=== PATIENT | female | born 1950 | race Caucasian/White ===

== ENCOUNTER 2021-05-17 10:58 | Outpatient (CLI) | payer BC, SELFPAY ==
[2021-05-17 11:49] LABS: Hemoglobin A1C 6.1 % (<5.7)
[2021-05-17 12:08] LABS: Anion Gap 9 mmol/L (8-16); Blood Urea Nitrogen 20 mg/dL (7-17); Calcium 10.3 mg/dL (8.4-10.2); Carbon Dioxide 27 mmol/L (22-30); Chloride 105 mmol/L (98-107); Cholesterol 162 mg/dL (0-200); Estimated Glomerular Filt Rate > 60; Glucose 141 mg/dL (65-110); HDL Direct 42 mg/dL; Potassium 4.5 mmol/L (3.4-5.0); Sodium 141 mmol/L (137-145); Triglycerides 170 mg/dL (<150)
[2021-05-17 12:19] LABS: LDL Cholesterol Direct 83 mg/dL
== END 2021-05-17 10:59 | disposition home or self-care (01) ==
LOC: ANHLAB 11:00
PROVIDERS: PCP Internal Medicine; Visit Provider Internal Medicine
DX: E11.9 Type 2 diabetes mellitus without complications (principal)
CPT/HCPCS: 36415; 80048; 80061; 83036

== ENCOUNTER 2021-11-18 12:02 | Outpatient (CLI) | payer BC, SELFPAY ==
[2021-11-18 12:26] LABS: Basophils Percent Auto 0.3 % (0.2-1.2); Eosinophils Absolute Auto 0.2 K/mm3 (0-0.3); Eosinophils Percent Auto 3.9 % (0-4.4); Hematocrit 42.5 % (37.0-47.0); Hemoglobin 14.7 g/dL (12.0-15.0); Immature Granulocyte Absolute 0.02 K/mm3 (0.00-0.031); Immature Granulocyte Percent A 0.3 % (0-0.5); Lymphocytes Absolute Auto 1.47 K/mm3 (0.9-3.2); Lymphocytes Percent Auto 25.2 % (18.3-44.2); Mean Corpuscular HGB Conc 34.6 g/dl (32-36); Mean Corpuscular Volume 92.6 fl (80-100); Mean Platelet Volume 9.8 fl (7.4-10.4); Monocytes Absolute Auto 0.6 K/mm3 (0.1-0.6); Monocytes Percent Auto 10.3 % (2.6-8.5); Neutrophils Absolute Auto 3.5 K/mm3 (1.3-6.7); Platelet Count Result 213 k/mm3 (150-375); Red Blood Count 4.59 M/mm3 (4.2-5.4); Red Cell Distribution Width 13.2 % (11.5-14.5); White Blood Count 5.8 K/mm3 (4.5-10.0)
[2021-11-18 12:35] LABS: Hemoglobin A1C 5.9 % (<5.7)
[2021-11-18 12:36] LABS: Alanine Aminotransferase 35 U/L (4-35); Albumin Level 4.6 g/dL (3.5-5.1); Alkaline Phosphatase 85 U/L (38-126); Anion Gap 8 mmol/L (8-16); Aspartate Amino Transferase 31 U/L (14-36); Blood Urea Nitrogen 15 mg/dL (7-17); Calcium 10.1 mg/dL (8.4-10.2); Carbon Dioxide 27 mmol/L (22-30); Chloride 104 mmol/L (98-107); Cholesterol 181 mg/dL (0-200); Estimated Glomerular Filt Rate > 60; Glucose 113 mg/dL (65-110); HDL Direct 40 mg/dL; Potassium 4.2 mmol/L (3.4-5.0); Sodium 139 mmol/L (137-145); Triglycerides 247 mg/dL (<150)
[2021-11-18 12:48] LABS: LDL Cholesterol Direct 84 mg/dL
[2021-11-18 12:59] LABS: Vitamin D 25 Hydroxy 39.8 ng/mL
== END 2021-11-18 12:03 | disposition home or self-care (01) ==
LOC: ANHLAB 12:04
PROVIDERS: PCP Internal Medicine; Visit Provider Internal Medicine
DX: R73.03 Prediabetes (principal); I10 Essential (primary) hypertension; Z85.3 Personal history of malignant neoplasm of breast; E78.5 Hyperlipidemia, unspecified; R79.89 Other specified abnormal findings of blood chemistry; E66.9 Obesity, unspecified
CPT/HCPCS: 36415; 80053; 80061; 82306; 83036; 85025

== ENCOUNTER 2022-05-19 10:58 | Outpatient (CLI) | payer BC, SELFPAY ==
[2022-05-19 20:15] LABS: Anion Gap 11 mmol/L (8-16); Blood Urea Nitrogen 17 mg/dL (7-17); Calcium 10.2 mg/dL (8.4-10.2); Carbon Dioxide 24 mmol/L (22-30); Chloride 104 mmol/L (98-107); Estimated Glomerular Filt Rate > 60; Glucose 128 mg/dL (65-110); Potassium 4.2 mmol/L (3.4-5.0); Sodium 139 mmol/L (137-145)
[2022-05-19 22:01] LABS: Hemoglobin A1C 6.3 % (<5.7)
== END 2022-05-19 10:59 | disposition home or self-care (01) ==
LOC: ANHGOSHLAB 11:00
PROVIDERS: PCP Internal Medicine; Visit Provider Internal Medicine
DX: R73.03 Prediabetes (principal); I10 Essential (primary) hypertension
CPT/HCPCS: 36415; 80048; 83036

== ENCOUNTER 2022-11-17 07:00 | Outpatient (NON) | payer MEDICARE, SELFPAY ==
[2022-11-18 08:13] LABS: Appearance Urine Cloudy (Clear); Bacteria Urine 4+ /hpf; Bilirubin Urine Negative (Negative); Blood Urine Negative (Negative); Color Urine Yellow (Yellow); Glucose Urine UA Negative (Negative); Ketones Urine Negative (Negative); Leukocyte Esterase Ur Trace LEU/UL (Negative); Nitrate Urine Positive (Negative); Non Pathogenic Casts 0-2; Protein Urine Negative (Negative); RBC Urine 0-2 /hpf (0-2); Specific Grav Ur 1.013 (1.001-1.035); Squamous Epithelial Cell Urine Occasional /hpf (Few); Urobilinogen Urine 0.2 mg/dL (<2.0)
[2022-11-18 08:19] LABS: Add Urine Microscopic? YES
== END 2022-11-17 07:01 | disposition home or self-care (01) ==
PROVIDERS: PCP Internal Medicine; Visit Provider Clinical Nurse Specialist
DX: R39.9 Unspecified symptoms and signs involving the genitourinary system (principal)
CPT/HCPCS: 81001; 87077; 87086; 87186

== ENCOUNTER 2022-11-17 11:26 | Outpatient (CLI) | payer MEDICARE, SELFPAY ==
[2022-11-17 20:11] LABS: Alanine Aminotransferase 60 U/L (6-35); Albumin Level 4.8 g/dL (3.5-5.1); Alkaline Phosphatase 87 U/L (38-126); Anion Gap 6 mmol/L (8-16); Aspartate Amino Transferase 46 U/L (14-36); Bilirubin,Total 1.1 mg/dL (0.2-1.3); Blood Urea Nitrogen 22 mg/dL (7-17); Calcium 10.4 mg/dL (8.4-10.2); Carbon Dioxide 30 mmol/L (22-30); Chloride 102 mmol/L (98-107); Cholesterol 165 mg/dL (0-200); Estimated Glomerular Filt Rate > 60; Glucose 122 mg/dL (65-110); HDL Direct 39 mg/dL; Potassium 4.2 mmol/L (3.4-5.0); Sodium 138 mmol/L (137-145); Triglycerides 178 mg/dL (<150)
[2022-11-17 20:24] LABS: LDL Cholesterol Direct 92 mg/dL
[2022-11-17 20:30] LABS: Vitamin D 25 Hydroxy 39.4 ng/mL
[2022-11-17 20:36] LABS: Basophils Percent Auto 0.5 % (0.2-1.2); Eosinophils Absolute Auto 0.2 K/mm3 (0-0.3); Eosinophils Percent Auto 3.6 % (0-4.4); Hematocrit 43.8 % (37.0-47.0); Hemoglobin 15.1 g/dL (12.0-15.0); Immature Granulocyte Absolute 0.01 K/mm3 (0.00-0.031); Immature Granulocyte Percent A 0.2 % (0-0.5); Lymphocytes Absolute Auto 1.66 K/mm3 (0.9-3.2); Lymphocytes Percent Auto 28.8 % (18.3-44.2); Mean Corpuscular HGB Conc 34.5 g/dl (32-36); Mean Corpuscular Hemoglobin 32.1 pg (26-34); Mean Corpuscular Volume 93.2 fl (80-100); Mean Platelet Volume 10.9 fl (7.4-10.4); Monocytes Absolute Auto 0.6 K/mm3 (0.1-0.6); Monocytes Percent Auto 9.7 % (2.6-8.5); Neutrophils Absolute Auto 3.3 K/mm3 (1.3-6.7); Neutrophils Percent Auto 57.2 % (45.5-73.1); Platelet Count Result 163 k/mm3 (150-375); Red Cell Distribution Width 12.6 % (11.5-14.5); White Blood Count 5.8 K/mm3 (4.5-10.0)
[2022-11-17 21:02] LABS: Appearance Urine Clear (Clear); Bacteria Urine 4+ /hpf; Bilirubin Urine Negative (Negative); Blood Urine Negative (Negative); Color Urine Yellow (Yellow); Glucose Urine UA Negative (Negative); Ketones Urine Negative (Negative); Leukocyte Esterase Ur Trace LEU/UL (Negative); Nitrate Urine Negative (Negative); Non Pathogenic Casts 0-2; Protein Urine Negative (Negative); RBC Urine 0-2 /hpf (0-2); Specific Grav Ur 1.011 (1.001-1.035); Squamous Epithelial Cell Urine None seen /hpf (Few); Urobilinogen Urine 0.2 mg/dL (<2.0); WBC Urine 0-5 /hpf; pH Urine 7.5 (5.0-9.0)
[2022-11-17 21:10] LABS: Add Urine Microscopic? YES
[2022-11-17 21:12] LABS: Hemoglobin A1C 6.2 % (<5.7)
== END 2022-11-17 11:27 | disposition home or self-care (01) ==
LOC: ANHGOSHLAB 11:31
PROVIDERS: PCP Internal Medicine; Visit Provider Clinical Nurse Specialist
DX: R39.9 Unspecified symptoms and signs involving the genitourinary system (principal); I10 Essential (primary) hypertension; R73.9 Hyperglycemia, unspecified; E78.5 Hyperlipidemia, unspecified; E55.9 Vitamin D deficiency, unspecified
CPT/HCPCS: 36415; 80053; 80061; 81001; 82306; 83036; 84443; 85025; 87077; 87086; 87186

== ENCOUNTER → 2022-11-25 09:00 | Outpatient (CLI) | payer MEDICARE, SELFPAY ==
--- NOTE | ~2022-11-25 | US_ITS ---
Limited Abdominal Sonogram: Real-time sonographic imaging of the right upper quadrant was performed. Clinical History: Right upper quadrant pain Findings: The liver appears normal with no evidence of solid mass lesion or bile duct dilatation. Le ft hepatic lobe cyst noted. Main portal vein demonstrates normal direction of flow. The gallbladder i s well distended, and demonstrates 2 mm gallbladder wall polyp. The common bile duct measures 6 mm. The visualized pancreas, aorta, and IVC are unremarkable. Impression: 2 mm gallbladder wall polyp. Reviewed, dictated and finalized at location M. Impression: 2 mm gallbladder wall polyp.
== END ==
PROVIDERS: PCP Internal Medicine; Visit Provider Clinical Nurse Specialist
DX: R10.11 Right upper quadrant pain (principal); K82.4 Cholesterolosis of gallbladder
CPT/HCPCS: 76705

== ENCOUNTER → 2023-03-30 09:06 | Outpatient (CLI) | payer MEDICARE, SELFPAY ==
--- NOTE | ~2023-03-30 | MR_ITS ---
EXAMINATION: MR humerus RT wo con DATE: 03/30/2023 10:40 INDICATION: Right arm pain and bruising. Assess for biceps tendon tear. TECHNIQUE: Magnetic resonance imaging (MRI) of the right humerus was performed without intravenous co ntrast. Sequences included axial, sagittal and coronal T1-weighted FSE and fluid sensitive FSE STIR a nd axial PD-weighted FS FSE. COMPARISON: None. FINDINGS: The distal biceps brachii tendon is intact. There is a partial thickness tear along the proximal myot endinous junction of the long head of the biceps muscle. There is associated lenticular hematoma at t he site of the tear which extends 9.2 cm proximal to distal and measures up to 3.3 x 2.7 cm. The more proximal tendon of the long head of the biceps appears to remain intact but is subluxed across the m edial rim of the intertubercular groove and into a longitudinal split tear defect between the bursal side of the subscapularis tendon which remains contiguous with the intact transverse humeral ligament and the remainder of the tendon. The split tear defect extends approximately 1 cm medially from the lateral margin of the lesser tuberosity footplate. Underlying mild tendinopathy of the subscapularis tendon. There appears be a likely tear of the distal supraspinatus tendon however evaluation is signi ficantly limited with the tendon at the cephalad margin of the large [id number] sagittal and coron al images. There is a small glenohumeral joint effusion. There is also small amount of fluid in the s ubacromial/subdeltoid bursa which could be due to either communication with the joint space through a full-thickness rotator cuff tear and/or due to subacromial/subdeltoid bursitis. There are cystic verenice nge along the greater tuberosity which can be seen in the setting of chronic rotator cuff disease. Gallo ne marrow signal is normal with no fracture or pathologic marrow replacing process. IMPRESSION: 1. Partial tear at the proximal long head biceps myotendinous junction with associated 9.2 x 3.3 x 2. 7 cm hematoma centered at the site of the tear. 2. Mild subscapularis tendinopathy with longitudinal split tear occurring along the lateral margin of the lesser tuberosity footplate with subluxation of the intact long head biceps tendon across the me dial margin of the intertubercular groove and into the subscapularis tendon tear defect. 3. Suggestion of a tear of the distal supraspinatus tendon, potentially full-thickness however evalua tion is significantly limited relative to a standard shoulder MRI due to the large uzjch-[id number]-hwkq and the location at the margin of the field of imaging on the sagittal and coronal images. If clinically indicated this could be further evaluated with a dedicated MRI of the right shoulder. 4. Small glenohumeral joint effusion and small amount of fluid in the subacromial/subdeltoid bursa wh ich could be related to a full-thickness rotator cuff tear/perforation and/or subacromial/subdeltoid bursitis. Reviewed, dictated and finalized at location A. IMPRESSION: 1. Partial tear at the proximal long head biceps myotendinous junction with ass ociated 9.2 x 3.3 x 2.7 cm hematoma centered at the site of the tear. 2. Mild subscapularis tendinopathy with longitudinal split tear occurring along the lateral margin of the lesser tuberosity footplate with subluxation of the intact long head biceps tendon across the medial margin of the intertubercular groove and into the subscapularis tendon tear defect. 3. Suggestion of a tear of the distal supraspinatus tendon, potentially full-th ickness however evaluation is significantly limited [facility] due to the large lbkxj-nz-madg and the location at the margin of the f ield of imaging on the sagittal and coronal images. If clinically indicated th
== END ==
PROVIDERS: PCP Internal Medicine; Visit Provider Nurse Practitioner
DX: M79.601 Pain in right arm (principal); M75.51 Bursitis of right shoulder
CPT/HCPCS: 73218

== ENCOUNTER 2023-06-10 09:00 | Outpatient (CLI) | payer MEDICARE, SELFPAY ==
[2023-06-10 18:52] LABS: Appearance Urine Clear (Clear); Bilirubin Urine Negative (Negative); Blood Urine Negative (Negative); Color Urine Yellow (Yellow); Glucose Urine UA Negative (Negative); Ketones Urine Negative (Negative); Leukocyte Esterase Ur Negative LEU/UL (Negative); Nitrate Urine Negative (Negative); Protein Urine Negative (Negative); Specific Grav Ur 1.019 (1.001-1.035)
[2023-06-10 19:06] LABS: Add Urine Microscopic? NO
[2023-06-10 19:14] LABS: Alanine Aminotransferase 56 U/L (6-35); Albumin Level 4.7 g/dL (3.5-5.1); Alkaline Phosphatase 86 U/L (38-126); Anion Gap 12 mmol/L (8-16); Aspartate Amino Transferase 40 U/L (14-36); Bilirubin,Total 1.1 mg/dL (0.2-1.3); Blood Urea Nitrogen 15 mg/dL (7-17); Calcium 10.4 mg/dL (8.4-10.2); Carbon Dioxide 27 mmol/L (22-30); Chloride 101 mmol/L (98-107); Estimated Glomerular Filt Rate > 60; Glucose 123 mg/dL (65-110); Potassium 4.2 mmol/L (3.4-5.0); Sodium 140 mmol/L (137-145)
[2023-06-10 20:23] LABS: Hemoglobin A1C 5.9 % (<5.7)
== END 2023-06-10 09:01 | disposition home or self-care (01) ==
LOC: ANHGOSHLAB 09:02
PROVIDERS: PCP Internal Medicine; Visit Provider Clinical Nurse Specialist
DX: E78.5 Hyperlipidemia, unspecified (principal); N30.00 Acute cystitis without hematuria; R73.9 Hyperglycemia, unspecified
CPT/HCPCS: 36415; 80053; 81003; 83036

== ENCOUNTER 2023-08-18 03:55 | Day surgery (SDC) | payer MEDICARE, SELFPAY ==
[2023-07-21 14:18] VITALS: BMI 36.8
--- NOTE | 2023-08-16 11:08 | SUR.PREOP ---
Patient called regarding upcoming procedure. Message left on pt's voicemail regarding appointment times.
[2023-08-18 10:26] VITALS: BP 149/74; PULSE 77; RESP 20; TEMP 35.7; O2SAT 98
--- NOTE | 2023-08-18 10:30 | WPDANESEPPF ---
Anes - Initial Pre Proc Eval Procedure: Operation Date: 08/18/23 11:30 Proposed Procedures p Colonoscopy - Ethan Mahoney MD Date/Time: 08/18/23 10:30 Surgeon: Ethan Mahoney MD Pre Op Diagnosis: hx of colon polyps Patient Data Age: 73 Gender: F Height: 1.55 m Weight: 88.5 kg Allergies Allergy/AdvReac Type Severity Reaction Status Date / Time codeine Allergy Mild nausea Verified 08/18/23 10:23 pentazocine Allergy Mild Nausea Verified 08/18/23 10:23 Home Medications Medication Instructions Recorded Confirmed Type aspirin 81 mg tablet,delayed 81 mg PO DAILY 10/15/20 07/21/23 History release (Adult Low Dose Aspirin) multivitamin 1 tablet PO DAILY 10/15/20 07/21/23 History atorvastatin 20 mg tablet 20 mg PO QHS #90 tabs 11/11/22 07/21/23 Rx triamterene 37.5 1 tablet PO DAILY #90 tabs 04/07/23 07/21/23 Rx mg-hydrochlorothiazide 25 mg tablet metoprolol succinate 100 mg 100 mg PO DAILY #90 tabs 05/07/23 07/21/23 Rx tablet,extended release 24 hr alprazolam 0.25 mg tablet (Xanax) 0.25 mg PO QHS PRN anxiety #20 tabs 05/18/23 07/21/23 Rx losartan 50 mg tablet See Rx Instructions .Route 06/24/23 07/21/23 Rx .COMPLEX #90 tabs Patient hx anesthesia problems: none Family hx anesthesia problems: none Results Review: All pre-operative results and documents have been reviewed as part of the pre-operative evaluation. [facility] Past Medical History Medical History (Updated 05/18/23 @ 14:21 by MAURISIO Botello-C) Abdominal hernia Allergies Arthritis Right Ankle Biceps tendon rupture BPPV (benign paroxysmal positional vertigo) Breast cancer Left breast Broken leg Right Colon polyps Hyperlipidemia Hypertension IBS (irritable bowel syndrome) Low vitamin D level Malignant melanoma of face Mild acid reflux Obesity (BMI 30-39.9) Post-menopausal Skin cancer Urinary complaints Urinary tract infection Vitamin D deficiency Surgical History Surgical History H/O breast reconstruction H/O: hysterectomy History of facial surgery History of tonsillectomy Family History Family History Mother Diabetes mellitus Hypertension Depression Heart disease Sibling Liver cancer Hypertension Depression Grandparent Alcoholism Diabetes mellitus Hypertension Depression Heart disease Cerebrovascular accident Social History Social History Smoking status: Former smoker Alcohol intake: current Drinks per week: 1 Alcohol use details: once a month Substance use type: does not use Lack of Transportation: No Lack of Food: Never True Current Housing: I Have Housing Concerned About Future Housing: No Difficulty Paying Gas/Electric Bills: No Difficulty Paying for Meds: No Currently Unemployed: No Education: Don't Know Difficulty w/ Childcare or Family Care: No Living arrangements: with family Spiritual care concerns: No Anes - Eval Final PreProcedure Day of Procedure 08/18/23 10:30 Patient weight: obese Heart: regular rate and rhythm Lungs: clear to auscultation Airway: Mallampati scale class II Neurological: alert and oriented Last oral intake: >/= 8 hours ASA classification: III Emergent: no Anesthetic plan: proceed Anesthesia type and monitoring: general GIVS and standard monitoring Results Review: All pre-operative results and documents have been reviewed as part of the pre-operative evaluation. Informed Consent: The patient's anesthetic plan and its attendant risks and benefits were discussed with the patient/family/POA. Questions were solicited and answers provided to the satisfaction of the patient/family/POA.
[2023-08-18] MEDS: LACTATED RINGERS 1,000 ML 150 ML IV CONT (10:47)
--- NOTE | 2023-08-18 10:57 | PM.HPGS ---
History of Present Illness History of Present Illness Consent: Risks, benefits, and alternatives have been discussed and questions answered. Patient agrees to proceed with procedure. Chief complaint: hx of colon polyps Narrative: Josette Krishna is a 73 year old female here for screening colonoscopy, last one about 10 years ago Review of Systems Constitutional: Constitutional: Denies headache(s) and Denies weakness Eyes: Eyes: Denies blurry vision ENT: Reports Normal hearing present, Denies headache(s) and Denies neck pain Cardiovascular: Cardiovascular: Denies chest pain and Denies dyspnea Respiratory: Respiratory: Denies dyspnea Gastrointestinal: Gastrointestinal: Reports no additional gastrointestinal complaints Genitourinary: Genitourinary: Denies dysuria Musculoskeletal: Musculoskeletal: Denies neck pain Integumentary/Breasts: Skin/Breast: Denies dry skin Neurologic: Reports Normal hearing present, Denies headache(s) and Denies weakness Psychiatric: Psychiatric: Denies anxiety Endocrine: Endocrine: Denies change in body appearance Hematologic/Lymphatic: Hematologic/Lymphatic: Denies easy bleeding Allergic/Immunologic: Allergic/Immunologic: Denies urticaria PMF Past Medical History Medical History (Updated 08/18/23 @ 10:58 by Ethan Mahoney MD) Abdominal hernia Allergies Arthritis Right Ankle Biceps tendon rupture BPPV (benign paroxysmal positional vertigo) Breast cancer Left breast Broken leg Right Colon cancer screening Colon polyps Hyperlipidemia Hypertension IBS (irritable bowel syndrome) Low vitamin D level Malignant melanoma of face Mild acid reflux Obesity (BMI 30-39.9) Post-menopausal Skin cancer Urinary complaints Urinary tract infection Vitamin D deficiency Surgical History Surgical History H/O breast reconstruction H/O: hysterectomy History of facial surgery History of tonsillectomy Family History Family History Mother Diabetes mellitus Hypertension Depression Heart disease Sibling Liver cancer Hypertension Depression Grandparent Alcoholism Diabetes mellitus Hypertension Depression Heart disease Cerebrovascular accident Social History Social History Smoking status: Former smoker Alcohol intake: current Drinks per week: 1 Alcohol use details: once a month Substance use type: does not use Lack of Transportation: No Lack of Food: Never True Current Housing: I Have Housing Concerned About Future Housing: No Difficulty Paying Gas/Electric Bills: No Difficulty Paying for Meds: No Currently Unemployed: No Education: Don't Know Difficulty w/ Childcare or Family Care: No Living arrangements: with family Spiritual care concerns: No Meds Home Medications and Allergies Home Medications Medication Instructions Recorded Confirmed Type aspirin 81 mg tablet,delayed 81 mg PO DAILY 10/15/20 07/21/23 History release (Adult Low Dose Aspirin) multivitamin 1 tablet PO DAILY 10/15/20 07/21/23 History atorvastatin 20 mg tablet 20 mg PO QHS #90 tabs 11/11/22 07/21/23 Rx triamterene 37.5 1 tablet PO DAILY #90 tabs 04/07/23 07/21/23 Rx mg-hydrochlorothiazide 25 mg tablet metoprolol succinate 100 mg 100 mg PO DAILY #90 tabs 05/07/23 07/21/23 Rx tablet,extended release 24 hr alprazolam 0.25 mg tablet (Xanax) 0.25 mg PO QHS PRN anxiety #20 tabs 05/18/23 07/21/23 Rx losartan 50 mg tablet See Rx Instructions .Route 06/24/23 07/21/23 Rx .COMPLEX #90 tabs Allergies Allergy/AdvReac Type Severity Reaction Status Date / Time codeine Allergy Mild nausea Verified 08/18/23 10:23 pentazocine Allergy Mild Nausea Verified 08/18/23 10:23 Vital Signs Vital Signs - 24 hr 08/18/23 10:26 Temperature 96.2 F L Pulse Rate 77 Respi
[2023-08-18 11:21] VITALS: BP 81/44; PULSE 65; RESP 18; O2SAT 99
[2023-08-18 11:31] VITALS: BP 98/50; PULSE 63; RESP 22; O2SAT 97
[2023-08-18 11:41] VITALS: BP 132/96; PULSE 67; RESP 19; O2SAT 98
== END 2023-08-18 11:46 | disposition home or self-care (01) ==
PROVIDERS: PCP Internal Medicine; Visit Provider Internal Medicine Gastroenterology
PROC: 0DJD8ZZ Inspection of Lower Intestinal Tract, Via Natural or Artificial Opening Endoscopic (ICD-10-PCS; CPT 45378; principal; 2023-08-18 11:30)
DX: Z12.11 Encounter for screening for malignant neoplasm of colon (principal); K57.30 Diverticulosis of large intestine without perforation or abscess without bleeding; K64.8 Other hemorrhoids; Z86.010 Personal history of colon polyps; I10 Essential (primary) hypertension; E78.5 Hyperlipidemia, unspecified; Z85.3 Personal history of malignant neoplasm of breast; Z79.82 Long term (current) use of aspirin; E66.9 Obesity, unspecified; Z68.36 Body mass index [BMI] 36.0-36.9, adult; Z87.891 Personal history of nicotine dependence
CPT/HCPCS: G0105; J2704; J7120

== ENCOUNTER 2023-12-07 09:03 | Outpatient (CLI) | payer MEDICARE, OTHER, SELFPAY ==
--- NOTE | ~2023-12-07 | US_ITS ---
Limited Abdominal Sonogram: Real-time sonographic imaging of the right upper quadrant was performed. Clinical History: Cholesterolosis of gallbladder Findings: The liver appears mildly echogenic, with no evidence of solid mass lesion or bile duct dil atation. Small hepatic cyst present. Main portal vein demonstrates normal direction of flow. The gall bladder is well distended, and appears densities 4 mm gallbladder wall polyp. The common bile duct me asures 7 mm. The visualized pancreas, aorta, and IVC are unremarkable. Impression: Diffuse fatty infiltration of liver. 4 mm gallbladder wall polyp. Reviewed, dictated and finalized at location M. Impression: Diffuse fatty infiltration of liver. 4 mm gallbladder wall polyp.
== END 2023-12-07 09:04 ==
PROVIDERS: PCP Surgery; Visit Provider Surgery
DX: K82.4 Cholesterolosis of gallbladder (principal)
CPT/HCPCS: 76705

== ENCOUNTER 2024-05-19 08:53 | Outpatient (CLI) | payer MEDICARE, SELFPAY ==
[2024-05-19 16:41] LABS: Basophils Percent Auto 0.4 % (0.2-1.2); Eosinophils Absolute Auto 0.2 K/mm3 (0-0.3); Eosinophils Percent Auto 3.9 % (0-4.4); Hematocrit 40.8 % (37.0-47.0); Immature Granulocyte Absolute 0.01 K/mm3 (0.00-0.031); Immature Granulocyte Percent A 0.2 % (0-0.5); Lymphocytes Absolute Auto 1.15 K/mm3 (0.9-3.2); Lymphocytes Percent Auto 22.5 % (18.3-44.2); Mean Corpuscular HGB Conc 34.3 g/dl (32-36); Mean Corpuscular Hemoglobin 32.8 pg (26-34); Mean Corpuscular Volume 95.6 fl (80-100); Mean Platelet Volume 10.2 fl (7.4-10.4); Monocytes Absolute Auto 0.5 K/mm3 (0.1-0.6); Monocytes Percent Auto 10.2 % (2.6-8.5); Neutrophils Absolute Auto 3.2 K/mm3 (1.3-6.7); Neutrophils Percent Auto 62.8 % (45.5-73.1); Platelet Count Result 204 k/mm3 (150-375); Red Blood Count 4.27 M/mm3 (4.2-5.4); Red Cell Distribution Width 13.2 % (11.5-14.5); White Blood Count 5.1 K/mm3 (4.5-10.0)
[2024-05-19 17:13] LABS: Alanine Aminotransferase 30 U/L (6-35); Albumin Level 4.2 g/dL (3.5-5.1); Alkaline Phosphatase 77 U/L (38-126); Anion Gap 10 mmol/L (4-12); Aspartate Amino Transferase 47 U/L (14-36); Bilirubin,Total 0.7 mg/dL (0.2-1.3); Blood Urea Nitrogen 17 mg/dL (7-17); Calcium 9.9 mg/dL (8.4-10.2); Carbon Dioxide 27 mmol/L (22-30); Chloride 106 mmol/L (98-107); Cholesterol 154 mg/dL (0-200); Estimated Glomerular Filt Rate > 60; Glucose 147 mg/dL (65-110); HDL Direct 39 mg/dL; Potassium 4.3 mmol/L (3.4-5.0); Sodium 143 mmol/L (137-145); Triglycerides 150 mg/dL (<150)
[2024-05-19 17:17] LABS: Vitamin D 25 Hydroxy 27.4 ng/mL
[2024-05-19 17:24] LABS: LDL Cholesterol Direct 72 mg/dL
[2024-05-19 17:30] LABS: Creatinine Urine 171.7 mg/dL
[2024-05-19 17:34] LABS: MALB Creatinine Ratio 17.5 mg/g (0-30); Microalbumin Urine Random 30.1 mg/L (0-16.7)
[2024-05-19 17:37] LABS: Hemoglobin A1C 6.4 % (<5.7)
== END 2024-05-19 08:54 | disposition home or self-care (01) ==
LOC: ANHGOSHLAB 08:56
PROVIDERS: PCP Clinical Nurse Specialist; Visit Provider Clinical Nurse Specialist
DX: E78.5 Hyperlipidemia, unspecified (principal); F41.9 Anxiety disorder, unspecified; I10 Essential (primary) hypertension; R73.9 Hyperglycemia, unspecified; R74.8 Abnormal levels of other serum enzymes; R73.03 Prediabetes; C43.30 Malignant melanoma of unspecified part of face; E55.9 Vitamin D deficiency, unspecified
CPT/HCPCS: 36415; 80053; 80061; 82043; 82306; 83036; 84443; 85025

== ENCOUNTER 2025-06-18 10:12 | Outpatient (CLI) | payer MEDICARE, SELFPAY ==
--- OUTSIDE RECORDS SUMMARY | 2025-06-18 11:53 | XMS_ITS | Encounter Summary ---
Author Organization [facility] Address [address] [place] [address] Care Team Providers Care Supervisor Wrapping Room Name Role Phone Ladarius Gunter MD Primary Care Provider [phone] Encounter Details Date Type Department Care Team (Late st Contact Info) Description 03/31/2019 Lab Requisition [facility] DermPath Lab [address] [place] [address] Nena Gil MD [address] [place] [address] Social History Tobacco Use Types Packs/Day Years Used Date Smoking Tobacco: Never Assessed Comments Unknown Sex and Gender Information Value Date Recorded Sex Assigned at Not on file Legal Sex Female 3:49 PM CDT Gender Identity Not on file Sexual Orientation Not on file documented as of this encounter Plan of Treatment Not on file documented as of this encounter Procedures Procedure Name Priority Date/Time Associated Diagnosis Comments DERMATOPATH TECHNICAL REPORT Routine 03/30/2019 12:00 AM CDT documented in this encounter Results * DERMATOPATH TECHNICAL REPORT (03/30/2019 12:00 AM CDT) Case Report Dermatopathology Report Case: [id number] Authorizing Provider: Nena Gil MD Collected: 03/30/2019 12:00 AM Ordering Location: [facility] DermPath Lab Received: 03/31/2019 12:43 PM Pathologist: Sanam Grijalva MD Specimen: Skin, left nasal crease 11:05 AM T DERMATOPATHOLOGY LABORATORY Addendum 1 At the request of the diagnosing physician, the technical component for CK20 was performed by [facility] Dermatopathology [facility]. 11:05 AM [facility] DERMATOPATHOLOGY LABORATORY Addendum electronically signed by Sanam Grijalva MD on 04/05/2019 at 1105 CDT Clinical History R/O BCC, nevus. Sammy Martinez papule. 11:05 AM T DERMATOPATHOLOGY LABORATORY Gross Description Specimen A: Received is one formalin filled container labeled with the patient's name and designated left nasal crease. The specimen consists of a shave (2 pieces) measuring [id number] & [id number]. Jar 0. [facility]at[facility] performed the technical component only. 11:05 AM T DERMATOPATHOLOGY LABORATORY Embedded Images 11:05 AM T DERMATOPATHOLOGY LABORATORY DISCLAIMER An external and internal positive and negative controls are appropriate for the histochemical, immunohistochemical and immunofluorescence stain(s) in this case (if any), except where stated explicitly. The performance characteristics of the stain(s) cited in this report were developed and its performance characteristic determined by the Dermatopathology Laboratory at [facility], directed by Dr. Ketan Fraga. These tests need not be, and therefore are not, approved by the [place] Food and Drug Administration. The tests are used for clinical purposes. 11:05 AM [facility] DERMATOPATHOLOGY LABORATORY at 1341 CDT Pathology/Cytolog y TISSUE SPECIMEN FROM SKIN / Unknown 03/30/2019 03/31/2019 12:43 PM CDT Nena Gil MD LAB - PATHOLOGY/CYTOLOGY ORD ERABLES Edited Result - Final DERMATOPATHOLOGY LABORATORY [facility] - Department of Dermatology [address] [place] [address], [address] [place] [address], [facility] [phone] documented in this encounter Visit Diagnoses Not on filedocumented in this encounter Care Teams Supervisor Wrapping Room Relationship Specialty Start Date End Date Ladarius Gunter MD PCP - General Internal Medicine 11/30/17 documented as of this encounter
--- OUTSIDE RECORDS SUMMARY | 2025-06-18 11:53 | XMS_ITS | Encounter Summary ---
Author Organization [facility] Address [address] [place] [address] Care Team Providers Care Mop Machine Operator Name Role Phone Laadrius Gunter MD Primary Care Provider [phone] Encounter Details Date Type Department Care Team (Late st Contact Info) Description 06/12/[address] [facility] D[facility] [address] [facility], [place] [id number] Nena Gil MD [address] [facility] [address] [place] [address] Social History Tobacco Use Types Packs/Day Years Used Date Smoking Tobacco: Former Smokeless Tobacco: Never Alcohol Use Standard Drinks/Week Comments Yes 0 (1 standard drink = 0.6 oz pur e alcohol) Comments Unknown Sex and Gender Information Value Date Recorded Sex Assigned at Not on file Legal Sex Female 3:49 PM CDT Gender Identity Not on file Sexual Orientation Not on file documented as of this encounter Plan of Treatment Not on file documented as of this encounter Procedures Procedure Name Priority Date/Time Associated Diagnosis Comments DERMATOPATHOLOGY Routine 06/11/2020 12:0 0 AM [facility] documented in this encounter Results * DERMATOPATHOLOGY (06/11/2020 12:00 AM [facility]) Case Report Dermatopathology Report Case: [id number] Authorizing Provider: Nena Gil MD Collected: 06/11/2020 12:00 AM Ordering Location: [facility] DermPath Lab Received: 06/12/2020 06:40 AM Pathologist: Paolo Fraga MD Specimen: Skin, left go 0 4:02 PM [facility] DERMATOPATHOLOGY LABORATORY Final Diagnosis Specimen A. SKIN, left go: BENIGN VERRUCOUS KERATOSIS, INFLAMED (L82.1) STASIS DERMATITIS (L30.8) 0 4:02 PM [facility] DERMATOPATHOLOGY LABORATORY at [address] [facility] [facility] Clinical History [place] crusted papule ISK R/O SCC, non-healing. 0 4:02 PM [facility] DERMATOPATHOLOGY LABORATORY Gross Description Specimen A: Received is one formalin filled container labeled with the patient's name and designated left go. The specimen consists of a shave measuring [id number]. Jar 0. 0 4:02 PM [facility] DERMATOPATHOLOGY LABORATORY Microscopic Description Specimen A. SKIN, left go: Sections show hyperkeratosis, papillomatosis, hypergranulosis, and acanthosis. Inflammatory cells are present within the dermis. These histological findings can be seen in a verruca vulgaris or a seborrheic keratosis. There is focal spongiosis. The dermis shows a sparse, perivascular lymphocytic infiltrate surrounding dilated, thick-walled vessels, which are increased in number. 0 4:02 PM [facility] DERMATOPATHOLOGY LABORATORY Disclaimer An external and internal positive and negative controls are appropriate for the histochemical, immunohistochemical and immunofluorescence stain(s) in this case (if any), except where stated explicitly. The performance characteristics of the stain(s) cited in this report were developed and its performance characteristic determined by the Dermatopathology Laboratory at [facility], directed by Dr. Ketan Fraga. These tests need not be, and therefore are not, approved by the [place] Food and Drug Administration. The tests are used for clinical purposes. Billing Codes Specimen Charges Stain Charges 61010 1 0 4:02 PM [facility] DERMATOPATHOLOGY LABORATORY Embedded Images 0 4:02 PM [facility] DERMATOPATHOLOGY LABORATORY Pathology/Cytolog y TISSUE SPECIMEN FROM SKIN / Unknown 06/11/2020 06/12/2020 6:40 AM [facility] us Nena Gil MD LAB - PATHOLOGY/CYTOLOGY ORD ERABLES Final Result DERMATOPATHOLOGY LABORATORY [facility] - Department of Dermatology [facility] Medicine [address] [place] [address], [address] [phone] documented in this encounter Visit Diagnoses Not on filedocumented in this encounter Care Teams Mop Machine Operator Relationship Specialty Start Date End Date Ladarius Gunter MD PCP - General Internal Medicine 11/30/17 documented as of this encounter
--- OUTSIDE RECORDS SUMMARY | 2025-06-18 11:53 | XMS_ITS | Encounter Summary ---
Author Organization [facility] Address [address] [facility] [place] [address] Care Team Providers Care Substance Abuse Specialist Name Role Phone Ladarius Gunter MD Primary Care Provider [phone] Encounter Details Date Type Department Care Team (Late st Contact Info) Description 08/04/2019 Lab Requisition [facility] DermPath Lab [address] [facility], [place] [id number] Nena Gil MD [address] [facility] [address] [place] [address] Social History Tobacco Use Types Packs/Day Years [...] Priority Date/Time Associated Diagnosis Comments DERMATOPATHOLOGY Routine 08/03/2019 12:0 0 AM CARPENTRY PROFESSIONAL documented in this encounter Results * DERMATOPATHOLOGY (08/03/2019 12:00 AM CARPENTRY PROFESSIONAL) Case Report Dermatopathology Report Case: [id number] Authorizing Provider: Nena Gil MD Collected: 08/03/2019 12:00 AM Ordering Location: [facility] DermPath Lab Received: 08/04/2019 12:46 PM Pathologist: Sanam Grijalva MD Specimen: Skin, right cheek 0 10:10 AM [facility] DERMATOPATHOLOGY LABORATORY Final Diagnosis Specimen A. SKIN, right cheek: MELANOMA IN SITU, LENTIGINOUS TYPE; PRESENT AT MARGIN (D03.39) (see microscopic description) 0 10:10 AM [facility] DERMATOPATHOLOGY LABORATORY at 1010 CARPENTRY PROFESSIONAL Clinical History R/O less melanoma, lentigo. New brown macule. 0 10:10 AM [facility] DERMATOPATHOLOGY LABORATORY Gross Description Specimen A: Received is one formalin filled container labeled with the patient's name and designated right cheek. The specimen consists of a shave measuring 3k0s1fi. Jar 0. 0 10:10 AM [facility] DERMATOPATHOLOGY LABORATORY Microscopic Description Specimen A. SKIN, right cheek: There is a proliferation of melanocytes distributed in an irregular pattern along the dermal-epidermal junction with single cells predominating. Extension down the follicular epithelium and focal areas of confluence are present. This melanocytic proliferation is highlighted on MART-1/Melan-A. This lesion is present at the margin of the specimen. Additional deeper sections were obtained and reviewed. 0 10:10 AM [facility] DERMATOPATHOLOGY LABORATORY Disclaimer An external and internal positive and negative controls are appropriate for the histochemical, immunohistochemical and immunofluorescence stain(s) in this case (if any), except where stated explicitly. The performance characteristics of the stain(s) cited in this report were developed and its performance characteristic determined by the Dermatopathology Laboratory at [facility], directed by Dr. Ketan Fraga. These tests need not be, and therefore are not, approved by the [place] Food and Drug Administration. The tests are used for clinical purposes. Billing Codes Specimen Charges Stain Charges 22061 1 39904 1 0 10:10 AM [facility] DERMATOPATHOLOGY LABORATORY Embedded Images 0 10:10 AM [facility] DERMATOPATHOLOGY LABORATORY Pathology/Cytolog y TISSUE SPECIMEN FROM SKIN / Unknown 08/03/2019 08/04/2019 12:46 PM [facility] Nena Gil MD LAB - PATHOLOGY/CYTOLOGY ORD ERABLES Final Result DERMATOPATHOLOGY LABORATORY [facility] - Department of Dermatology [address] [facility], 5th [place] [address], [facility] [phone] documented in this encounter Visit Diagnoses Not on filedocumented in this encounter Care Teams Substance Abuse Specialist Relationship Specialty Start Date End Date Ladarius Gunter MD PCP - General Internal Medicine 11/30/17 documented as of this encounter
--- OUTSIDE RECORDS SUMMARY | 2025-06-18 11:53 | XMS_ITS | Encounter Summary ---
Author Organization [facility] Address [address] [facility] [place] [address] Care Team Providers Care Motor Vehicles Inspector Name Role Phone Ladarius Gunter MD Primary Care Provider Encounter Details Date Type Department Care Team (Late st Contact Info) Description 11/27/2019 Lab Requisition [facility] Care DermPath Lab [address] [facility], [place] [id number] Nena Gil MD [address] [facility] [address] DE[place] [address] Social History Tobacco Use Types Packs/Day Years [...] Priority Date/Time Associated Diagnosis Comments DERMATOPATHOLOGY Routine 11/27/2019 12:0 0 AM CDT documented in this encounter Results * DERMATOPATHOLOGY (11/27/2019 12:00 AM CDT) Case Report Dermatopathology Report Case: [id number] Authorizing Provider: Nena Gil MD Collected: 11/27/2019 12:00 AM Ordering Location: [facility] DermPath Lab Received: 11/27/2019 02:40 PM Pathologist: Ella Rod MD Specimen: Skin, back 0 1:02 PM CDT DERMATOPATHOLOGY LABORATORY Final Diagnosis Specimen A. SKIN, back: LENTIGINOUS MELANOCYTIC NEVUS, COMPOUND TYPE, IRRITATED (COMPOUND MELANOCYTIC NEVUS WITH ARCHITECTURAL DISORDER) (D22.5) 0 1:02 PM CDT DERMATOPATHOLOGY LABORATORY at 1302 CDT Clinical History R/O melanoma, nevus. Hx MM dark brown macule. 0 1:02 PM CDT DERMATOPATHOLOGY LABORATORY Gross Description Specimen A: Received is one formalin filled container labeled with the patient's name and designated back. The specimen consists of a shave measuring 1s0k5ot. Jar 0. 0 1:02 PM CDT DERMATOPATHOLOGY LABORATORY Microscopic Description Specimen A. SKIN, back: This is a compound nevus. There is melanin pigment in the stratum corneum. There is architectural disorder characterized by a lentiginous proliferation of melanocytes between irregular nevus nests of cells along the dermal epidermal junction. There is underlying fibroplasia of the papillary dermis. The intradermal component is bland in appearance and matures with depth. (Compound Bert's Nevus or Compound Dysplastic Nevus) 0 1:02 PM CDT DERMATOPATHOLOGY LABORATORY Disclaimer An external and internal positive and negative controls are appropriate for the histochemical, immunohistochemical and immunofluorescence stain(s) in this case (if any), except where stated explicitly. The performance characteristics of the stain(s) cited in this report were developed and its performance characteristic determined by the Dermatopathology Laboratory at [facility], directed by Dr. Ketan Fraga. These tests need not be, and therefore are not, approved by the [place] Food and Drug Administration. The tests are used for clinical purposes. Billing Codes Specimen Charges Stain Charges 23234 1 0 1:02 PM CDT DERMATOPATHOLOGY LABORATORY Embedded Images 0 1:02 PM CDT DERMATOPATHOLOGY LABORATORY Pathology/Cytolog y TISSUE SPECIMEN FROM SKIN / Unknown 11/27/2019 11/27/2019 2:40 PM CDT us Nena Gil MD LAB - PATHOLOGY/CYTOLOGY ORD ERABLES Final Result DERMATOPATHOLOGY LABORATORY [facility] - Department of Dermatology [address] [place] [address], 5th [place] [address], [facility] [phone] documented in this encounter Visit Diagnoses Not on filedocumented in this encounter Care Teams Motor Vehicles Inspector Relationship Specialty Start Date End Date Ladarius Gunter MD PCP - General Internal Medicine 11/30/17 documented as of this encounter
--- OUTSIDE RECORDS SUMMARY | 2025-06-18 11:53 | XMS_ITS | Clinical Summary ---
Author Organization [facility] Address [address] [place] [address] Phone Care Team Providers Care Clinic Manager Name Role Phone Ladarius Gunter MD Primary Care Provider [phone] Allergies Active Allergy Reactions Criticality Noted Date Comments Codeine Nausea and Vomiting Low 08/30/2019 Shellfish Containing Products Nausea and Vomiting Low 08/30/2019 Talwin Compound Dizziness Low 08/30/2019 Medications metoprolol tartrate (LOPRESSOR) 100 mg tablet Take 100 mg by mouth daily. Active triamterene-hydr oCHLOROthiazide (MAXZIDE 25) 37.5-25 mg tablet Take 1 Tablet by mouth daily. Active aspirin (ECOTRIN EC) 81 mg Tablet, Delayed Release (E.C.) Take 81 mg by mouth daily. Active multivitamin,tx- iron-ca-min (THERA-M) 27-0.4 mg Tablet Take 1 Tablet by mouth daily. Active MELOXICAM ORAL Take 15 mg by mouth. Active atorvastatin calcium (ATORVASTATIN ORAL) Take 20 mg by mouth. Active cephALEXin (KEFLEX) 500 mg capsule Take 500 mg by mouth 2 times daily. 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 Gender Identity Not on file Sexual Orientation Not on file Last Filed Vital Signs Vital Sign Reading Time Taken Comments Blood Pressure 111/63 09/04/2019 6:35 PM PITCH FILLER Pulse 75 09/04/2019 6:35 PM PITCH FILLER Temperature 36.2 C (97.1 F) 09/04/2019 6:35 PM PITCH FILLER Respiratory Rate 14 09/04/2019 6:35 PM PITCH FILLER Oxygen Saturation 95% 09/04/2019 6:35 PM PITCH FILLER Inhaled Oxygen Concentration - - Weight 89.8 kg (198 lb) 09/04/2019 11:08 AM PITCH FILLER Height 160 cm (5' 3) 09/04/2019 11:08 AM PITCH FILLER Body Mass Index 35.07 09/04/2019 11:08 AM PITCH FILLER Plan of Treatment Health Maintenance Due Date Last Done Comments DTAP/TDAP/TD VACCINES (1 - Tdap) 1967 PNEUMOCOCCAL VACCINE 50+ YEA RS (1 of 1 - PCV) 1998 ZOSTER VACCINE (1 of 2) 1998 OSTEOPOROSIS SCREENING 2013 RSV VACCINE (60+ or ) (1 - 1-dose 75+ series) 2023 INFLUENZA VACCINE (#1) 2025 05/24/2019, 2018 Medical Devices Implanted Type Area Cartridge Belt Puncher Device Identifier Shelf Expiration Date Model / Serial / Lot Sealant Fibrin Artiss 4ml Frzn [id number] - [id number] Implanted:Qty: 1 on 09/04/2019 by Villa Corrigan MD at [facility] Sealant Right: Face DONATO- BIOSCIENCE 08/25/2020 [id number] / / [id number] Insurance BCBS BLUE ACCESS/TRUE BLUE PPO Advance Directives For more information, please contact: [phone] * Full Code (Latest Code Status on File) Date Activated Date Inactivated Comments 09/04/2019 4:51 PM 09/04/2019 9:08 PM * Full Code Date Activated Date Inactivated Comments 09/04/2019 12:14 PM 09/04/2019 4:51 PM Care Teams Clinic Manager Relationship Specialty [place] [address] [facility] [place] [address] PCP - General 06/01/00
--- OUTSIDE RECORDS SUMMARY | 2025-06-18 11:53 | XMS_ITS | Clinical Summary ---
Author Organization [facility] [employer] Address [address] [facility] [place] [place] [address] Care Team Providers Care C Software Engineer Name Role Phone Ladarius Gunter MD Primary Care Provider [phone] Source Comments [facility] [employer],non-owned Affiliates and Associated Physician Practices is amultiple site organization consisting of ambulatory clinics and hospital sitesin [place], [place], [place] and [place]. This disclosure is being madepursuant to the Care Everywhere program and may not contain all information available regarding this patient. Last updated 18.[facility] [employer] Allergies Active Allergy Reactions Criticality Noted Date Comments Adhesive Sensitivity Rash High 06/07/2019 Codeine Nausea and/or Vomiting Medium 05/02/2019 Lobster [Other] Diarrhea,Nausea and/or Vomiting High 05/02/2019 Pentazocine-Aspirin Dizziness 08/30/2019 Pentazocine Nausea and/or Vomiting,Dizziness Medium Medications * Be aware that medications may not be up to date on this document. Alwaysverify current medications with the patient. 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 (FLUAD TRIVALENT; 65Y+) (AIIV3) 05/23/2019 INFLUENZA VACCINE, HIGH-DOSE , QUADR. (FLUZONE HIGH-DOSE QUADRIVALENT; 65Y+), 0.7 ML (HD-IIV4) 05/24/2019 Family History Medical History Relation Name Comments Hypertension Brother Hypertension Sister Relation Name Status Comments Brother Alive Father Maternal Grandfather Maternal Grandmother Mother Paternal Grandfather Paternal Grandmother Sister Alive Social History Tobacco Use Types Packs/Day Years [...] Sign Reading Time Taken Comments Blood Pressure 167/100 08/28/2019 2:24 PM GLUCOSE AND SYRUP WEIGHER Pulse 66 08/28/2019 2:24 PM GLUCOSE AND SYRUP WEIGHER Temperature 36.3 C (97.4 F) 10/09/2020 10:59 AM CDT Respiratory Rate - - Oxygen Saturation 96% 08/28/2019 2:24 PM GLUCOSE AND SYRUP WEIGHER Inhaled Oxygen Concentration - - Weight 81.6 kg (180 lb) 08/28/2019 1:23 PM GLUCOSE AND SYRUP WEIGHER Height 160 cm (5' 3) 08/28/2019 1:23 PM GLUCOSE AND SYRUP WEIGHER Body Mass Index 31.89 08/28/2019 1:23 PM GLUCOSE AND SYRUP WEIGHER Plan of Treatment Health Maintenance Due Date Last Done Comments BONE DENSITY TESTING 1950 MEDICARE AWV 12 MONTHS 1950 HEPATITIS C SCREENING 03/09/1966 DTAP/TDAP/TD VACCINES (1 - Tdap) 1967 PNEUMOCOCCAL VACCINE 50+ (1 of 1 - PCV) 1998 ZOSTER VACCINE (1 of 2) 1998 Respiratory Syncytial Virus (RSV) Vaccine Pt: or over 60 yrs (1 - 1-dose 75+ series) 2023 DEPRESSION SCREENING 07/26/2024 COVID-19 VACCINE (1 - 2024-2 6 season) 2025 INFLUENZA VACCINE (#1) 2025 9, 05/23/2019 HEPATITIS B VACCINE Aged Out No longe r eligible based on patient's age to complete this topic HIB VACCINE Aged Out No longer eligi ble based on patient's age to complete this topic HPV VACCINE Aged Out No longer eligi ble based on patient's age to complete this topic MENINGOCOCCAL (Group B) VACCINE SHARED DECISION-MAKING Aged Out No longer eligible based on patient's age to complete this topic MENINGOCOCCAL GROUPS A/C/Y/W VACCINE Aged Out No longer eligible b ased on patient's age to complete this topic Insurance MEDICARE [employer] Care Teams C Software Engineer Relationship Specialty Start Date End Date Ladarius Gunter MD PCP - General Internal Medicine 11/30/17
--- OUTSIDE RECORDS SUMMARY | 2025-06-18 11:53 | XMS_ITS | Encounter Summary ---
Author Organization [facility] Address [address] [place] [address] Care Team Providers Care Waitstaff Name Role Phone Ladarius Gunter MD Primary Care Provider [phone] Encounter Details Date Type Department Care Team (Latest Contact Info) Description 06/02/2000 Inpatient Historical HIS PATIENT IN A BED Jc Mccarthy MD NO ADDRESS ON FILE William Laguerre MD [address] [place] [id number] Excessive or frequent menstruation (Primary Dx) Social History Tobacco Use Types Packs/Day Years Used Date Smoking Tobacco: Never Assessed Comments Unknown Sex and Gender Information Value Date Recorded Sex Assigned at Not on file Legal Sex 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
--- OUTSIDE RECORDS SUMMARY | 2025-06-18 11:53 | XMS_ITS | Encounter Summary ---
Author Organization [facility] Address 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
--- OUTSIDE RECORDS SUMMARY | 2025-06-18 11:53 | XMS_ITS | Encounter Summary ---
Author Organization [facility] Address [address] [place] [address] Care Team Providers Care Pantograph Watcher Name Role Phone Ladarius Gunter MD Primary Care Provider [phone] Encounter Details Date Type Department Care Team (Latest Contact Info) Description 10/11/2000 Outpatient Historical HIS PATIENT IN A BED William Laguerre MD [facility] [address] [id number] Inguinal hernia without mention of obstruction or gangrene, unilateral or unspecified, (not specified as recurrent) (Primary Dx) Social History Tobacco Use Types Packs/Day Years Used Date Smoking Tobacco: Never Assessed Comments Unknown Sex and Gender Information Value Date Recorded Sex Assigned at Not on file Legal Sex Female 2:37 AM CAR DUMPER Gender Identity Not on file Sexual Orientation Not on file documented as of this encounter Plan of Treatment Not on file documented as of this encounter Visit Diagnoses Diagnosis Inguinal hernia without mention of obstruction or gangrene, unilateral or unspecified, (not specified as recurrent)- Primary documented in this encounter Care Teams Pantograph Watcher Relationship Specialty [place] [id number] [address] PCP - General 06/01/00 documented as of this encounter
--- OUTSIDE RECORDS SUMMARY | 2025-06-18 11:53 | XMS_ITS | Encounter Summary ---
Author Organization [facility] Address [address] [facility] [place] [address] Care Team Providers Care Banquet Food Server Name Role Phone Ladarius Gunter MD Primary Care Provider [phone] Encounter Details Date Type Department Care Team (Late st Contact [facility]) Description 06/08/2024 Lab Requisition [facility] - DermPath Lab [address] [facility], [place] [address] Nena Gil MD [address] [facility] [place] [place] [address] [place] [address] Social History Tobacco Use Types Packs/Day Years [...] Priority Date/Time Associated Diagnosis Comments DERMATOPATHOLOGY Routine 06/08/2024 1:05 PM URBAN FORESTER documented in this encounter Results * DERMATOPATHOLOGY (06/08/2024 1:05 PM URBAN FORESTER) Case Report Dermatopathology Report Case: [id number] Authorizing Provider: Nena Gil MD Collected: 06/08/2024 01:05 PM Ordering Location: [facility] - Received: 06/09/2024 11:29 AM DermPath Lab Pathologist: Ella Rod MD Specimen: Skin, left upper lip 1:20 PM [facility] DERMATOPATHOLOGY LABORATORY Final Diagnosis Specimen A. SKIN, left upper lip: ACTINIC KERATOSIS (L57.0) MILIUM, SUPERFICIAL PORTIONS OF (L72.8) (see microscopic description) 1:20 PM [facility] DERMATOPATHOLOGY LABORATORY at 1320 URBAN FORESTER Clinical History [place] Crusted Papule Cyst vs AK vs BCC 1:20 PM [facility] DERMATOPATHOLOGY LABORATORY Gross Description Specimen A: Received is one formalin filled container labeled with the patient's name and designated left upper lip. The specimen consists of a shave biopsy measuring 3x2x1 mm. Jar 0. 1:20 PM [facility] DERMATOPATHOLOGY LABORATORY Microscopic Description Specimen A. SKIN, left upper lip: There is focal parakeratosis. The lower half of the epidermis shows disorderly maturation of keratinocytes with nuclear pleomorphism. In addition, there are superficial portions of a space that contains loosely aggregated cornified cells surrounded by epithelium that resembles normal epidermis, best seen on slides A1-3 and A1-4. Additional deeper sections were obtained and reviewed. 1:20 PM [facility] DERMATOPATHOLOGY LABORATORY Disclaimer An external and internal positive and negative controls are appropriate for the histochemical, immunohistochemical and immunofluorescence stain(s) in this case (if any), except where stated explicitly. The performance characteristics of the stain(s) cited in this report were developed and its performance characteristic determined by the Dermatopathology Laboratory at [facility], directed by Dr. Ketan Fraga. These tests need not be, and therefore are not, approved by the [place] Food and Drug Administration. The tests are used for clinical purposes. Billing Codes Specimen Charges Stain Charges 09107 1 1:20 PM [facility] DERMATOPATHOLOGY LABORATORY Embedded Images 1:20 PM [facility] DERMATOPATHOLOGY LABORATORY Pathology/Cytolo gy TISSUE SPECIMEN FROM SKIN / Unknown 06/08/2024 1:05 PM URBAN FORESTER 06/09/2024 11:29 AM URBAN FORESTER us Nena Gil MD LAB - PATHOLOGY/CYTOLOGY ORD ERABLES Final Result DERMATOPATHOLOGY LABORATORY [facility] - Department of Dermatology [facility] [address] [place] [address], [address] [phone] documented in this encounter Visit Diagnoses Not on filedocumented in this encounter Care Teams Banquet Food Server Relationship Specialty Start Date End Date Ladarius Gunter MD PCP - General Internal Medicine 11/30/17 documented as of this encounter
--- OUTSIDE RECORDS SUMMARY | 2025-06-18 11:53 | XMS_ITS | Encounter Summary ---
Author Organization [facility] Address [address] [place] [address] Care Team Providers Care Ink Blender Name Role Phone Ladarius Gunter MD Primary Care Provider [phone] Ladarius Donovan DO Primary Care Provider [phone] Reason for Visit * Reason Onset Date Comments Scheduling Appointments 06/10/2021 Confirmi ng mammogram appt- no answer Encounter Details Date Type Department Care Team (Late st Contact Info) Description 06/10/2021 Telephone [facility] [address] [place] [address] [address] Scheduling Appointments (Confirming mammogram appt- no answer) Social History Tobacco Use Types Packs/Day Years Used Date Smoking Tobacco: Never Assessed Comments No Sex and Gender Information Value Date Recorded Sex Assigned at Not on file Legal Sex Female 2:49 PM SHANK BREAKER Gender Identity Not on file Sexual Orientation Not on file documented as of this encounter Plan of Treatment Not on file documented as of this encounter Visit Diagnoses Not on filedocumented in this encounter Care Teams Ink Blender Relationship Specialty Start Date End Date Ladarius Gunter MD PCP - General 03/16/17 06/10/21 Ladarius Donovan DO PCP - General 06/11/21 documented as of this encounter
--- OUTSIDE RECORDS SUMMARY | 2025-06-18 11:53 | XMS_ITS | Clinical Summary ---
Author Organization [facility] Address [address] [place] [address] Care Team Providers Care Terminal Operations Supervisor Name Role Phone Ladarius Donovan DO Primary Care Provider [phone] Allergies Active Allergy Reactions Criticality Noted Date Comments Adhesive Tape-Silicones Blisters High 06/07/2019 Codeine Vomiting Low 06/06/2018 Surgical History Surgery Date Site/Laterality Comments OOPHORECTOMY MASTECTOMY 07/26/1997 - 07/25/1998 Left HYSTERECTOMY REDUCTION MAMMAPLASTY 07/26/1998 - 07/25/1999 Left tram procedure was too large, pt wanted breast smaller Medical History Medical History Date Comments Basal cell carcinoma (BCC) of face Breast cancer (HCC) 1997 left breast ca Family History Medical History Relation Name Comments Breast cancer Neg Hx Ovarian cancer Neg Hx Thyroid cancer Neg Hx Social History Tobacco Use Types Packs/Day Years Used Date Smoking Tobacco: Never Assessed Comments No Sex and Gender Information Value Date Recorded Sex Assigned at Not on file Legal Sex Female 2:49 PM 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 OPERATOR Gender Identity Not on file Sexual Orientation Not on file Obstetrics History Para Term AB IAB SAB Ectopic Multiple Livin g Live Births 4 4 4 Date Outcome GA Total Labor Labor/2nd/3rd Weight Sex Type Anes PTL Therese A1 A5 Name Clin Term Term Term Term Last Filed Vital Signs Vital Sign Reading Time Taken Comments Blood Pressure - - Pulse - - Temperature - - Respiratory Rate - - Oxygen Saturation - - Inhaled Oxygen Concentration - - Weight 88.5 kg (195 lb) 06/14/2023 10:15 AM DUMPER OPERATOR Height 157.5 cm (5' 2) 06/15/2024 10:39 AM DUMPER OPERATOR Body Mass Index 35.67 06/14/2023 10:15 AM DUMPER OPERATOR Plan of Treatment Health Maintenance Due Date Last Done Comments Depression Screening 1950 Fall Risk Assessment 1950 Hepatitis C Screening 1950 Osteoporosis Screening-Bone Density Scan 1950 DTaP/Tdap/Td Vaccine (1 - Tdap) 1959 Hepatitis B Screening 1966 Zoster Vaccine (1 of 2) 1998 Well Visit 65+ 2013 Pneumococcal vaccine 65+ (2 of 2 - PCV20 or PCV21) 05/22/2019 05/22/2018, 05/15/2017 Influenza Vaccine (#1) 2025 9, 05/23/2019, 05/22/2018, Additional history exists Colon Cancer Screening-CT Colonography Discontinued 10/27/2013 Colon Cancer Screening-Colonoscopy Discontinued 10/27/2013 Colon Cancer Screening-DNA Stool Discontinued 10/28/19 14 Colon Cancer Screening-FIT Discontinued 10/27/2013 Colon Cancer Screening-FOBT Discontinued 10/27/2013 Colon Cancer Screening-Sigmoidoscopy Discontinued 10/27/2013 Colorectal Cancer Screening Discontinued Breast Cancer Screening-Mammogram Discontinued 06/15/2024, 06/14/2023, 06/12/2022, Additional history exists Procedures Procedure Name Priority Date/Time Associated Diagnosis Comments SCREENING MAMMOGRAM RIGHT W NORA UNILATERAL ONLY Schedule Routine, Read Routine (OP Routine) 06/15/2024 10:51 AM DUMPER OPERATOR Screening mammogram, encounter for COLONOSCOPY 10/27/2013 12:00 AM CDT from Last 3 Months or Most Recently Relevant to Health Maintenance Results * Screening Mammogram Right W Nora Unilateral Only (06/15/2024 10:51 AM DUMPER OPERATOR) Anatomical Region Laterality Modality Breast Right Mammography 06/20/2024 11:4 7 AM DUMPER OPERATOR Addenda Addendum by Lyndsey Gary MD on 06/20/2024 11:47 AM DUMPER OPERATOR Comparison is made to prior studies dated 2022, 2021, and 2020. There has been no significant interval change. Electronically signed by: Lyndsey Gary M.D. Narrative 06/15/2024 7:08 PM DUMPER OPERATOR Examination: Screening Mammogram Right W Nora Unilateral Only: 06/15/24 Clinical: Screening mammogram, encounter for. Prior Study Comparisons: Findings: The patient is status post left mastectomy. There are benign right breast calcifications.No significant masses, malignant type calcifications, skin thickening, nipple retraction, or significant lymphadenopathy is noted in this breast. Computer Aided Detection was utilized for the interpretation of this study. There are scattered areas of fibroglandular density. The patient will be notified of results by letter. Impression: BI-RADS ATLAS category (right): 2 - Benign Overall Assessment: 2 - Benign Recommendation: - Routine Screening Mammogram in 1 Yr for the right breast. Procedure Note Ashly Randhawa MD / Lyndsey Gary MD - 06/15/2024 Examination: Screening Mammogram Right W Nora Unilateral Only: 06/15/24 Clinical: Screening mammogram, encounter for. Prior Study Comparisons: Findings: The patient is status post left mastectomy. There are benignright breast calcifications.No significant masses, malignant typecalcifications, skin thickening, nipple retraction, or significantlymphadenopathy is noted in this breast. Computer Aided Detection wasutilized for the interpretation of this study. There are scattered areas of fibroglandular density. The patient will be notified of results by letter. Impression: BI-RADS ATLAS category (right): 2 - Benign Overall Assessment: 2 - Benign Recommendation: - Routine Screening Mammogram in 1 Yr for the right breast. Ladarius Donovan DO G MAMMO PROCEDURES Edite d Result - Final * COLONOSCOPY (10/27/2013 12:00 AM CDT) Anatomical Region Laterality Modality Other Narrative 10/27/2013 12:00 AM CDT Ordered by an unspecified provider. Procedure Note Isabela Dover MD - 10/27/2013 12:00 AM CDT PROCEDURE REPORT Patient: JOSETTE ROWLAND Account: [id number] Room No: : 1950 Patient Type: SDS Attend.: Jordan Wagner M.D. Admit Date: 10/27/2013 Dict.: Jordan Wagner M.D. Disch. Date: 10/27/2013 NAME OF PROCEDURE: Colonoscopy. DATE OF PROCEDURE: 10/27/13 REFERRING PHYSICIAN: Dr. Gunter. PREVIOUS PROCEDURE: Colonoscopy with hyperplastic polyps found. X-RAYS: None. HISTORY AND PHYSICAL EXAM: The patient is a 63-year-old white femalereferred now for repeat screening colonoscopy. She has a history of bright redblood per rectum, which she has contributed to hemorrhoids. She has a historyof polyps removed on the initial screening exam. We have been asked to seeher now for endoscopic evaluation of her colon and evaluation of her brightred blood per rectum. PHYSICAL EXAMINATION: General: Is that of a well-developed,well-nourished white female in no acute distress. She is nonicteric. Lungs: Her lungsare clear. Heart: Regular. GI: Soft, supple. Extremities: Showed no calfpain, cords or edema. PREPROCEDURE DIAGNOSES: 1. Bright red blood per rectum in a 63-year-old female. 2. Screening colonoscopy. INSTRUMENT USED: Olympus video endoscope. MEDICATIONS: Per anesthesia. FINDINGS: The colonoscope was introduced into the rectum, left lateralposition and passed to the cecum. The patient tolerated the procedure well. There were no complications. On withdrawal of the colonoscope, themucosa appeared normal with the normal vascular pattern. In the cecum, was asmall sessile polyp. This was picked up, hot biopsied and destroyed. Theremainder of the cecum, right and transverse colons were normal. In the left and rectosigmoid, several small hyperplastic appearing polyps were found.These were simply picked up, cauterized and destroyed. The remainder of theleft rectosigmoid and rectum were normal. Retroflex view of the internal analarea showed moderate internal hemorrhoidal tissue. The patient had small to moderate external hemorrhoidal tissue. No other perianal disease. Noanal fissures, no fistulas. No rectal masses. COMPLICATIONS: None. POSTPROCEDURE DIAGNOSES: 1. Small polyps cecum, status post hot biopsy and removal. 2. Bright red blood per rectum, consistent with perianal bleeding. 3. Otherwise normal screening colonoscopy to cecum with a withdrawaltime of 16 minutes and 55 seconds. Preparation was excellent POSTPROCEDURE ORDERS: 1. Post sedation instructions. 2. High fiber diet. 3. Check pathology. 4. Repeat colon pending path report. 5. Follow up with Dr. Gunter. 6. *-*-* 7. 8. 1. Jordan Wagner M.D. CORNEL/mahendra TD: 10/30/2013 05:57 CC: Dr. Gunter Authenticated by Jordan Wagner MD On 10/31/2013 07:48:04 AM us Historical Provider ENDOSCOPY PROCEDURES Cecy l Result from Last 3 Months or Most Recently Relevant to Health Maintenance [facility] MEDICARE MEDICARE [facility] MEDICARE SUPPLEMENT Care Teams Terminal Operations Supervisor Relationship Specialty Start Date End Date Ladarius Donovan DO PCP - General 06/11/21
[2025-06-18 13:01] LABS: Hematocrit 42.9 % (37.0-47.0); Hemoglobin 14.6 g/dL (12.0-15.0); Immature Granulocyte Percent A 0.4 % (0-0.5); Lymphocytes Absolute Auto 1.33 K/mm3 (0.9-3.2); Mean Corpuscular HGB Conc 34.0 g/dl (32-36); Mean Corpuscular Hemoglobin 31.9 pg (26-34); Mean Corpuscular Volume 93.7 fl (80-100); Nucleated Red Blood Cells Absolute Auto 0.000 K/mm3 (0.0-0.012); Nucleated Red Blood Cells Perc 0.0 % (0.0-0.2); Platelet Count Result 196 k/mm3 (150-375); Red Blood Count 4.58 M/mm3 (4.2-5.4); White Blood Count 5.0 K/mm3 (4.5-10.0)
[2025-06-18 13:14] LABS: Alanine Aminotransferase 39 U/L (6-35); Albumin Level 4.6 g/dL (3.5-5.1); Alkaline Phosphatase 90 U/L (38-126); Anion Gap 9 mmol/L (4-12); Aspartate Amino Transferase 52 U/L (14-36); Bilirubin,Total 0.9 mg/dL (0.2-1.3); Blood Urea Nitrogen 15 mg/dL (7-17); Calcium 10.5 mg/dL (8.4-10.2); Carbon Dioxide 27 mmol/L (22-30); Chloride 103 mmol/L (98-107); Estimated Glomerular Filt Rate > 60; Glucose 148 mg/dL (65-110); Potassium 3.9 mmol/L (3.4-5.0); Sodium 139 mmol/L (137-145); Total Protein 7.8 g/dL (6.3-8.2)
[2025-06-18 13:50] LABS: MALB Creatinine Ratio 26.0 mg/g (0-30)
[2025-06-18 14:51] LABS: Hemoglobin A1C 6.5 % (<5.7)
== END 2025-06-18 10:13 | disposition home or self-care (01) ==
PROVIDERS: PCP Clinical Nurse Specialist; Visit Provider Clinical Nurse Specialist
DX: R73.01 Impaired fasting glucose (principal); R74.01 Elevation of levels of liver transaminase levels; I10 Essential (primary) hypertension
CPT/HCPCS: 36415; 80053; 82043; 83036; 85025